=== PATIENT | female | born 1995 | race Caucasian/White ===

== ENCOUNTER 2020-05-24 18:29 | Emergency (ER) | payer OTHER ==
[2020-05-24 18:57] VITALS: BP 139/97; PULSE 89; TEMP 97.9; BMI 24.7
[2020-05-24] MEDS ORDERED: ACETAMINOPHEN 500 MG TABLET (FP) PO ONE (19:58)
[2020-05-24] MEDS ORDERED: ACETAMINOPHEN 325 MG TABLET (FP) ONE (20:18)
[2020-05-24 20:55] LABS: BASO % 0.4 % (0-2.0); HEMOGLOBIN 13.1 GM/dL (10.7-15.3); LYMPH % 31.1 % (8-40); MCH 30.5 pg (25.7-33.7); MCHC 34.4 g/dl (32.0-36.0); MEAN CELL VOLUME 88.6 fl (80-96); MEAN PLT VOLUME 11.7 fl (7.5-11.1); MONO % 5.7 % (3.8-10.2); NEUT % 61.8 % (42.8-82.8); PLATELET COUNT 162 K/MM3 (134-434); RBC 4.29 M/mm3 (3.60-5.2); WHITE BLOOD COUNT 8.8 K/mm3 (4.0-10.0)
[2020-05-24 20:58] LABS: PH,URINE 6.5 (5.0-8.0); URINE APPEARANCE CLEAR; URINE BILIRUBIN NEGATIVE (NEGATIVE); URINE COLOR YELLOW; URINE GLUCOSE (UA) NEGATIVE (NEGATIVE); URINE KETONE NEGATIVE (NEGATIVE); URINE LEUK ESTERASE NEGATIVE (NEGATIVE); URINE NITRITE NEGATIVE (NEGATIVE); URINE PROTEIN NEGATIVE (NEGATIVE); URINE UROBILINOGEN 0.2 mg/dL (0.2-1.0)
[2020-05-24 21:00] LABS: HCG,QUALITATIVE URINE Negative
[2020-05-24 21:18] LABS: POTASSIUM 3.8 mmol/L (3.5-5.1)
[2020-05-24 21:20] LABS: CALCIUM 9.5 mg/dL (8.5-10.1)
[2020-05-24 21:21] LABS: ALBUMIN 4.5 g/dl (3.4-5.0); BLOOD UREA NITROGEN 8.4 mg/dL (7-18)
[2020-05-24 21:24] LABS: CREATININE 0.6 mg/dL (0.55-1.3)
[2020-05-24 21:26] LABS: BILIRUBIN,TOTAL 0.6 mg/dL (0.2-1); TOT PROT 8.1 g/dl (6.4-8.2)
[2020-05-24] MEDS ORDERED: IBUPROFEN 600 MG TABLET (FP) PO ONE ×2 (22:23→22:27)
== END 2020-05-24 23:17 | disposition home or self-care (01) ==
LOC: JER 18:29
DX: R10.2 Pelvic and perineal pain (principal)
CPT/HCPCS: 36415; 76775-TC; 76830-TC; 80053; 81003; 84703; 85025; 87086; 99284-25

== ENCOUNTER 2020-07-25 10:19 | Emergency (ER) | payer OTHER ==
[2020-07-25 10:32] VITALS: BP 129/82; PULSE 88; TEMP 98.3; BMI 21.4
[2020-07-25 12:30] LABS: BASO % 0.2 % (0-2.0); EOS % 0.8 % (0-4.5); HEMATOCRIT 36.9 % (32.4-45.2); HEMOGLOBIN 12.8 GM/dL (10.7-15.3); LYMPH % 25.6 % (8-40); MCH 30.8 pg (25.7-33.7); MCHC 34.8 g/dl (32.0-36.0); MEAN CELL VOLUME 88.7 fl (80-96); MEAN PLT VOLUME 11.2 fl (7.5-11.1); MONO % 4.6 % (3.8-10.2); NEUT % 68.8 % (42.8-82.8); PH,URINE >= 9.0 (5.0-8.0); PLATELET COUNT 137 K/MM3 (134-434); RBC 4.16 M/mm3 (3.60-5.2); RDW 12.7 % (11.6-15.6); URINE APPEARANCE TURBID; URINE BILIRUBIN NEGATIVE (NEGATIVE); URINE COLOR YELLOW; URINE GLUCOSE (UA) NEGATIVE (NEGATIVE); URINE KETONE NEGATIVE (NEGATIVE); URINE LEUK ESTERASE NEGATIVE (NEGATIVE); URINE NITRITE NEGATIVE (NEGATIVE); URINE PROTEIN NEGATIVE (NEGATIVE); URINE UROBILINOGEN 0.2 mg/dL (0.2-1.0); WHITE BLOOD COUNT 7.8 K/mm3 (4.0-10.0)
[2020-07-25 12:39] LABS: INR 0.97 (0.83-1.09)
[2020-07-25 12:41] LABS: ACTIVATED PTT 31.4 SECONDS (25.2-36.5)
[2020-07-25 12:45] LABS: BLOOD UREA NITROGEN 5.3 mg/dL (7-18); CALCIUM 8.7 mg/dL (8.5-10.1)
[2020-07-25 12:50] LABS: CREATININE 0.4 mg/dL (0.55-1.3)
== END 2020-07-25 15:15 | disposition home or self-care (01) ==
LOC: JER 10:19
DX: O26.851 Spotting complicating pregnancy, first trimester (principal); Z3A.11 11 weeks gestation of pregnancy
CPT/HCPCS: 36415; 76801-TC; 80048; 81003; 84702; 85025; 85610; 85730; 86850; 86900; 86901; 87086; 99285-25

== ENCOUNTER 2020-07-30 18:21 | Emergency (ER) | payer OTHER ==
[2020-07-30 18:56] VITALS: BMI 22.3
[2020-07-30 20:42] LABS: BASO % 0.2 % (0-2.0); EOS % 0.8 % (0-4.5); HEMATOCRIT 35.9 % (32.4-45.2); HEMOGLOBIN 12.4 GM/dL (10.7-15.3); LYMPH % 29.4 % (8-40); MCH 30.5 pg (25.7-33.7); MCHC 34.7 g/dl (32.0-36.0); MEAN CELL VOLUME 87.9 fl (80-96); MEAN PLT VOLUME 11.3 fl (7.5-11.1); MONO % 4.8 % (3.8-10.2); NEUT % 64.8 % (42.8-82.8); PLATELET COUNT 147 K/MM3 (134-434); RBC 4.08 M/mm3 (3.60-5.2); RDW 12.8 % (11.6-15.6); WHITE BLOOD COUNT 8.1 K/mm3 (4.0-10.0)
[2020-07-30 21:18] LABS: EPI CELLS >36 /uL (0-25.1); HYALINE CASTS 0 /uL (0-3.1); PH,URINE 8.5 (5.0-8.0); URINE APPEARANCE CLEAR; URINE BACTERIA 747 /uL (0-1359); URINE BILIRUBIN NEGATIVE (NEGATIVE); URINE COLOR YELLOW; URINE GLUCOSE (UA) NEGATIVE (NEGATIVE); URINE KETONE NEGATIVE (NEGATIVE); URINE LEUK ESTERASE 1+ (NEGATIVE); URINE NITRITE NEGATIVE (NEGATIVE); URINE PROTEIN NEGATIVE (NEGATIVE); URINE RBC 5 /uL (0-23.9); URINE UROBILINOGEN 0.2 mg/dL (0.2-1.0); URINE WBC 39 /uL (0-25.8)
[2020-07-30 22:00] VITALS: BP 130/89; PULSE 89; TEMP 98.7
== END 2020-07-30 21:50 | disposition home or self-care (01) ==
LOC: JER 18:21
DX: O20.8 Other hemorrhage in early pregnancy (principal); N30.00 Acute cystitis without hematuria
CPT/HCPCS: 36415; 76801-TC; 81003; 84702; 85025; 87086; 99284-25

== ENCOUNTER 2021-02-07 08:44 | Emergency (ER) | payer OTHER ==
[2021-02-07 08:51] VITALS: BMI 31.2
[2021-02-07 09:44] LABS: BASO % 0.3 % (0-2.0); EOS % 0.7 % (0-4.5); HEMATOCRIT 32.1 % (32.4-45.2); HEMOGLOBIN 11.1 GM/dL (10.7-15.3); LYMPH % 22.4 % (8-40); MCH 29.5 pg (25.7-33.7); MCHC 34.5 g/dl (32.0-36.0); MEAN CELL VOLUME 85.3 fl (80-96); MEAN PLT VOLUME 10.3 fl (7.5-11.1); MONO % 6.5 % (3.8-10.2); NEUT % 70.1 % (42.8-82.8); PLATELET COUNT 159 10^3/uL (134-434); RBC 3.76 M/mm3 (3.60-5.2); RDW 14.3 % (11.6-15.6); WHITE BLOOD COUNT 8.6 K/mm3 (4.0-10.0)
[2021-02-07 09:54] LABS: INR 0.92 (0.83-1.09); PROTHROMBIN TIME (PATIENT) 11.3 SEC (9.7-13.0)
[2021-02-07 09:55] VITALS: BP 122/80; PULSE 72; TEMP 98.2
[2021-02-07 09:57] LABS: ACTIVATED PTT 25.2 SECONDS (25.2-36.5)
[2021-02-07 10:03] LABS: CALCIUM 8.3 mg/dL (8.5-10.1)
[2021-02-07 10:04] LABS: BLOOD UREA NITROGEN 6.1 mg/dL (7-18); CREATININE 0.5 mg/dL (0.55-1.3)
[2021-02-07 12:22] LABS: SYPHILIS W/ RPR CONF NON-REACTIVE (NONREACTIVE)
[2021-02-08 03:10] LABS: HEPATITIS B SURFACE AG MATERN NON-REACTIVE (NONREACTIVE)
== END 2021-02-07 10:54 | disposition home or self-care (01) ==
LOC: JER 08:44
DX: O47.1 False labor at or after 37 completed weeks of gestation (principal); Z3A.39 39 weeks gestation of pregnancy
CPT/HCPCS: 36415; 80048; 85025; 85610; 85730; 86780; 86850; 86870; 86900; 86901; 86902; 87340; 99283-25; C9803; U0003; U0005

== ENCOUNTER 2021-02-08 10:00 | Inpatient (IN) | payer OTHER ==
[2021-02-08 10:45] VITALS: BMI 33.4
[2021-02-08] MEDS ORDERED: SODIUM PHOSPHATE/NA BIPHOS 133 ML ENEMA RC ONE (11:05)
[2021-02-08] MEDS ORDERED: DINOPROSTONE 10 MG VAGINAL SUPPOSITORY VG ONE (11:06)
[2021-02-08] MEDS: DEXTROSE 5%-LACTATED RINGERS 1,000 ML IV SCH ×2 (11:30→15:37)
[2021-02-08] MEDS ORDERED: AMPICILLIN - 2 GM in SODIUM CHLORIDE 100 ML IVPB ONE (16:56)
[2021-02-08] MEDS ORDERED: AMPICILLIN SODIUM 2 GM VIAL ONE (16:57)
[2021-02-08] MEDS ORDERED: PROMETHAZINE HCL 25 MG/1 ML VIAL IVPUSH ONE (17:17)
[2021-02-08] MEDS ORDERED: BUTORPHANOL TARTRATE 2 MG/ML VIAL IVPUSH ONE (17:17)
[2021-02-08] MEDS ORDERED: PROMETHAZINE HCL 25 MG/1 ML VIAL ONE (17:35)
[2021-02-08] MEDS ORDERED: BUTORPHANOL TARTRATE 2 MG/ML VIAL ONE (17:35)
[2021-02-08] MEDS ORDERED: ELECTROLYTE-148 SOLN 1,000 ML IV SCH (19:15)
[2021-02-08] MEDS ORDERED: OXYTOCIN 30 UNITS in 0.9% NS 30 UNIT/500 ML INFUS.BAG IVPB SCH (19:15)
[2021-02-08] MEDS ORDERED: PCA PUMP NR ONE (19:18)
[2021-02-08] MEDS ORDERED: FENTANYL/BUPIVACAINE/NS/PF - PCEA - 50 ML DISP.SYRIN EP ONE ×4 (19:19→23:55)
[2021-02-08] MEDS ORDERED: BUPIVACAINE HCL/PF 0.25% (2.5MG/ML) 10 ML VIAL ONE (19:29)
[2021-02-08] MEDS ORDERED: LIDOCAINE HCL 1% PRESERVATIVE FREE - 30ML VIAL ONE ×2 (19:29→20:18)
[2021-02-08] MEDS ORDERED: AMPICILLIN SODIUM 1 GM VIAL ONE (20:15)
[2021-02-08] MEDS ORDERED: SODIUM CHLORIDE 100 ML IVPB ONE (20:15)
[2021-02-08] MEDS ORDERED: OXYTOCIN 20 UNITS in 0.9% NS 20 UNIT/1,000 ML INFUS.BAG IV ONE ×2 (20:18→23:01)
[2021-02-08] MEDS ORDERED: NALOXONE HCL 0.4 MG/ML VIAL IVPUSH PRN (20:36)
[2021-02-08] MEDS ORDERED: FENTANYL/BUPIVACAINE/NS/PF - PCEA - 50 ML DISP.SYRIN EP SCH (20:45)
[2021-02-08] MEDS ORDERED: AMPICILLIN - 1 GM in SODIUM CHLORIDE 100 ML IVPB SCH (21:00)
[2021-02-08] MEDS ORDERED: BISACODYL 10 MG SUPP.RECT RC PRN (21:38)
[2021-02-08] MEDS ORDERED: METHYLERGONOVINE MALEATE 0.2 MG/1 ML AMP IM PRN (21:38)
[2021-02-08] MEDS ORDERED: BENZOCAINE 20% 57 GM BOTTLE TP PRN (21:38)
[2021-02-08] MEDS ORDERED: WITCH HAZEL 50% (TUCKS) 40 PAD/JAR PAD TP PRN (21:38)
[2021-02-08] MEDS ORDERED: BENZOCAINE 28 GM HEMORRHOIDAL OINTMENT TP PRN (21:38)
[2021-02-08] MEDS ORDERED: OXYTOCIN 20 UNITS in 0.9% NS 20 UNIT/1,000 ML INFUS.BAG IV SCH (21:45)
[2021-02-08 22:03] LABS: CORD BASE EXCESS -5.3 mmol/L (0-2); CORD HCO3 22.3 mmHg (20-29); CORD PCO2 49.8 mmHg (30-78); CORD pH 7.268 (7.14-7.44)
[2021-02-09] MEDS: IBUPROFEN 600 MG TABLET (FP) PO PRN ×4 (03:51→21:40)
[2021-02-09] MEDS: ACETAMINOPHEN 325 MG TABLET (FP) PO PRN ×2 (03:51→21:41)
[2021-02-09] MEDS: FERROUS SO4 325 MG TABLET (FP) PO SCH ×2 (08:50→17:24)
[2021-02-09 08:53] LABS: BASO % 0.3 % (0-2.0); EOS % 0.1 % (0-4.5); HEMATOCRIT 29.1 % (32.4-45.2); LYMPH % 18.3 % (8-40); MCH 29.4 pg (25.7-33.7); MCHC 34.3 g/dl (32.0-36.0); MEAN CELL VOLUME 85.8 fl (80-96); MEAN PLT VOLUME 10.2 fl (7.5-11.1); MONO % 5.8 % (3.8-10.2); NEUT % 75.5 % (42.8-82.8); PLATELET COUNT 133 10^3/uL (134-434); RBC 3.39 M/mm3 (3.60-5.2); RDW 14.1 % (11.6-15.6); WHITE BLOOD COUNT 14.9 K/mm3 (4.0-10.0)
[2021-02-09] MEDS: PRENATAL VITAMINS W/ FOLIC ACID TABLET (FP) PO SCH (09:41)
[2021-02-09] MEDS ORDERED: SENNOSIDES/DOCUSATE COMBO (SENNA PLUS) TABLET (UD) PO PRN (22:00)
[2021-02-09 22:44] VITALS: TEMP 98
[2021-02-10] MEDS: FERROUS SO4 325 MG TABLET (FP) PO SCH (08:58)
[2021-02-10] MEDS: PRENATAL VITAMINS W/ FOLIC ACID TABLET (FP) PO SCH (09:15)
[2021-02-10] MEDS: IBUPROFEN 600 MG TABLET (FP) PO PRN (09:50)
[2021-02-10 12:18] VITALS: BP 127/79; PULSE 83
== END 2021-02-10 11:45 | disposition home or self-care (01) | DRG 560 ==
LOC: JLDR 10:00 → J3W 23:17
PROVIDERS: ADMIT Obstetrics & Gynecology; ATTEND Obstetrics & Gynecology
PROC: 3E0P7VZ Introduction of Hormone into Female Reproductive, Via Natural or Artificial Opening (ICD-10-PCS; principal; 2021-02-08)
PROC: 10E0XZZ Delivery of Products of Conception, External Approach (ICD-10-PCS; 2021-02-08)
PROC: 0W8NXZZ Division of Female Perineum, External Approach (ICD-10-PCS; 2021-02-08)
PROC: 0HQ9XZZ Repair Perineum Skin, External Approach (ICD-10-PCS; 2021-02-08)
DX: O70.0 First degree perineal laceration during delivery (principal); O69.81X0 Labor and delivery complicated by cord around neck, without compression, not applicable or unspecified; O99.824 Streptococcus B carrier state complicating childbirth; B95.1 Streptococcus, group B, as the cause of diseases classified elsewhere; Z3A.39 39 weeks gestation of pregnancy; Z37.0 Single live birth
CPT/HCPCS: 36415; 36600; 59409; 80048; 82803; 85025; 85610; 85730; 86780; 86850; 86870; 86900; 86901; 86902; 87340; 99283-25; C9803; U0003; U0005